=== PATIENT | male | born 2000 | race Caucasian/White ===

== ENCOUNTER 2021-02-17 15:55 | Emergency (ER) | payer OTHER, BC | END 2021-02-17 18:56 | disposition home or self-care (01) | LOC: ERS 15:55 | DX: S82.55XA Nondisplaced fracture of medial malleolus of left tibia, initial encounter for closed fracture (principal); V57.6XXA Passenger in pick-up truck or van injured in collision with fixed or stationary object in traffic accident, initial encounter | CPT/HCPCS: 29515 ==

== ENCOUNTER 2021-02-19 12:59 | Outpatient (CLI) | payer BC ==
[2021-02-19 23:48] LABS: SARS-CoV-2 PCR by NAA Not Detected (NotDetected)
== END 2021-02-19 13:00 | disposition home or self-care (01) ==
LOC: LABBT 12:59
PROVIDERS: ATTEND Orthopaedic Surgery
DX: Z01.812 Encounter for preprocedural laboratory examination (principal); S82.52XA Displaced fracture of medial malleolus of left tibia, initial encounter for closed fracture; Z20.822 Contact with and (suspected) exposure to COVID-19
CPT/HCPCS: U0003; U0005

== ENCOUNTER 2021-02-22 08:31 | Day surgery (SDC) | payer BC ==
[2021-02-20 14:45] VITALS: BMI 32.0
[2021-02-22] MEDS ORDERED: ceFAZolin 2 GM/DEX 5% 100 ML BAG ONE ×2 (09:29→11:01)
[2021-02-22] MEDS ORDERED: Midazolam HCl 2 mg/2 ml Vial ONE ×2 (11:01→11:02)
[2021-02-22] MEDS ORDERED: Fentanyl 100 MCG/2 ML VIAL ONE ×3 (11:02→12:51)
[2021-02-22] MEDS ORDERED: Ondansetron PF 4 MG/2 ML Vial ONE (12:04)
== END 2021-02-22 15:20 | disposition home or self-care (01) ==
LOC: SDC 08:31
PROVIDERS: ATTEND Orthopaedic Surgery
PROC: 0QSH04Z Reposition Left Tibia with Internal Fixation Device, Open Approach (ICD-10-PCS; principal; 2021-02-22)
DX: S82.52XA Displaced fracture of medial malleolus of left tibia, initial encounter for closed fracture (principal); F17.200 Nicotine dependence, unspecified, uncomplicated; X50.1XXA Overexertion from prolonged static or awkward postures, initial encounter
CPT/HCPCS: 76000; C1713; J2250; J2405; J3010